=== PATIENT | female | born 1975 | race Caucasian/White ===

== ENCOUNTER 2017-09-21 12:31 | Emergency (ER) | payer OTHER ==
[~2017-09-21] VITALS: Ht 162.5 cm; Wt 77.1 kg
[~2017-09-21 12:31] MED LIST: AMBIEN10 M1 PO; DAYPRO600 M1 PO; EFFEXOR XR150 MG PO; LISINOPRIL AND1 TAB PO; ROBAXIN750 MG PO; WELLBUTRIN XL300 MG PO
[2017-09-21] MEDS ORDERED: AMOXICILLIN500 M2 PO (13:06)
[2017-09-21] MEDS ORDERED: NORCO 5-325 TA1 EACH PO (13:06)
== END 2017-09-21 13:58 | disposition home or self-care (01) ==
LOC: ED 12:31
DX: K08.89 Other specified disorders of teeth and supporting structures (principal); F17.200 Nicotine dependence, unspecified, uncomplicated; Z79.899 Other long term (current) drug therapy

== ENCOUNTER 2017-12-29 10:30 | Emergency (ER) | payer OTHER ==
[~2017-12-29] VITALS: Ht 162.5 cm; Wt 74.8 kg
[~2017-12-29 10:30] MED LIST changes: +AMOXICILLIN500 M2 PO; +NORCO 5-325 TA1 EACH PO
[2017-12-29] MEDS ORDERED: NORCO 5-325 TA1 EACH PO (11:51)
== END 2017-12-29 13:02 | disposition home or self-care (01) ==
LOC: ED 10:30
DX: S62.231A Other displaced fracture of base of first metacarpal bone, right hand, initial encounter for closed fracture (principal); F17.200 Nicotine dependence, unspecified, uncomplicated; Z79.899 Other long term (current) drug therapy; X58.XXXA Exposure to other specified factors, initial encounter; Y93.89 Activity, other specified; Y92.89 Other specified places as the place of occurrence of the external cause; Y99.8 Other external cause status

== ENCOUNTER 2018-04-19 12:02 | Emergency (ER) | payer OTHER ==
[~2018-04-19] VITALS: Ht 213.3 cm; Wt 72.6 kg
[2018-04-19] MEDS ORDERED: ZESTORETIC 10-1 EACH PO (12:11)
[2018-04-19] MEDS ORDERED: MINOCIN100 MG PO (12:12)
[2018-04-19] MEDS ORDERED: LEXAPRO20 MG PO (12:12)
[2018-04-19] MEDS ORDERED: LEVO-T25 MCG PO (12:13)
[2018-04-19] MEDS ORDERED: MEDROL DOSEPAK4 MG PO (12:35)
[2018-04-19] MEDS ORDERED: CYCLOBENZAPRINE10 MG PO (12:35)
[2018-04-19] MEDS ORDERED: NAPROSYN500 MG PO (12:35)
== END 2018-04-19 12:54 | disposition home or self-care (01) ==
LOC: ED 12:02
DX: M54.30 Sciatica, unspecified side (principal); Z79.899 Other long term (current) drug therapy

== ENCOUNTER 2018-12-06 10:09 | Emergency (ER) | payer OTHER ==
[~2018-12-06] VITALS: Ht 162.5 cm; Wt 74.8 kg
[~2018-12-06 10:09] MED LIST changes: +CYCLOBENZAPRINE10 MG PO; +LEVO-T25 MCG PO; +LEXAPRO20 MG PO; +MEDROL DOSEPAK4 MG PO; +MINOCIN100 MG PO; +NAPROSYN500 MG PO; +ZESTORETIC 10-1 EACH PO
[2018-12-06] MEDS ORDERED: NAPROSYN500 MG PO (10:39)
[2018-12-06] MEDS ORDERED: PENICILLIN VK500 MG PO (10:39)
[2018-12-06] MEDS ORDERED: Peridex 473 ML473 ML PO (10:39)
[2018-12-06] MEDS ORDERED: ZOFRAN4 MG PO (10:39)
== END 2018-12-06 10:53 | disposition home or self-care (01) ==
LOC: ED 10:09
DX: K02.9 Dental caries, unspecified (principal); R03.0 Elevated blood-pressure reading, without diagnosis of hypertension; F17.200 Nicotine dependence, unspecified, uncomplicated; Z79.899 Other long term (current) drug therapy

== ENCOUNTER 2019-10-24 01:22 | Emergency (ER) | payer SELFPAY ==
[~2019-10-24] VITALS: Wt 68.0 kg
[~2019-10-24 01:22] MED LIST changes: +PENICILLIN VK500 MG PO; +Peridex 473 ML473 ML PO; +ZOFRAN4 MG PO
[2019-10-24] MEDS ORDERED: PENICILLIN VK500 MG PO (02:32)
[2019-10-24] MEDS ORDERED: Motrin,Rufen800 MG PO (14:43)
== END 2019-10-24 02:36 | disposition home or self-care (01) ==
LOC: ED 01:22
DX: K04.01 Reversible pulpitis (principal); K02.9 Dental caries, unspecified; I10 Essential (primary) hypertension; F17.200 Nicotine dependence, unspecified, uncomplicated; Z79.899 Other long term (current) drug therapy

== ENCOUNTER 2019-10-24 13:20 | Emergency (ER) | payer SELFPAY ==
[~2019-10-24] VITALS: Ht 162.5 cm; Wt 65.8 kg
[2019-10-24] MEDS ORDERED: Motrin,Rufen800 MG PO (14:43)
== END 2019-10-24 15:13 | disposition home or self-care (01) ==
LOC: ED 13:20
DX: K04.7 Periapical abscess without sinus (principal); I10 Essential (primary) hypertension; F17.200 Nicotine dependence, unspecified, uncomplicated; Z79.2 Long term (current) use of antibiotics; Z79.899 Other long term (current) drug therapy

== ENCOUNTER 2023-04-11 13:41 | Emergency (ER) | payer OTHER ==
[~2023-04-11] VITALS: Ht 162.5 cm; Wt 63.5 kg
[~2023-04-11 13:41] MED LIST changes: +Motrin,Rufen800 MG PO
[2023-04-11] MEDS ORDERED: CYCLOBENZAPRINE10 MG PO (15:13)
[2023-04-11] MEDS ORDERED: EC NAPROSYN,NA500 MG PO (15:13)
== END 2023-04-11 15:21 | disposition home or self-care (01) ==
LOC: ED 13:41
DX: M43.16 Spondylolisthesis, lumbar region (principal); M54.2 Cervicalgia; V49.40XA Driver injured in collision with unspecified motor vehicles in traffic accident, initial encounter; Y93.89 Activity, other specified; Y92.89 Other specified places as the place of occurrence of the external cause; Y99.8 Other external cause status